=== PATIENT | female | born 1995 | race American Indian/Alaskan Native ===

== ENCOUNTER 2024-04-03 13:56 | Inpatient (IN) | payer OTHER, MEDICAID ==
[~2024-04-03] VITALS: Ht 162.6 cm; Wt 70.8 kg
[~2024-04-03 13:56] MED LIST: ETOMIDATE 20 MG/ 10 ML VIAL (AMIDATE) ONE; SUCCINYLCHOLINE CHLORIDE 20 MG/ML(QUELICIN) ONE
[2024-04-03 14:00] VITALS: BP_SYST 206; PULSE 61; RESP 24; TEMP 98.3; O2SAT 98
[2024-04-03] MEDS: DIPHENHYDRAMINE INJ 50 MG/ML VIAL IVP ONE (14:22)
[2024-04-03] MEDS: DEXAMETHASONE SOD PHOSPHATE 10 MG/ML VIAL IVP ONE (14:22)
[2024-04-03] MEDS: ONDANSETRON HCL 4 MG/2 ML VIAL IVP ONE (14:22)
[2024-04-03] MEDS: LORazepam 2 MG/ML VIAL IVP ONE ×2 (14:23→16:00)
[2024-04-03] MEDS: HALOPERIDOL LACTATE 5 MG/ML VIAL IVP ONE ×2 (14:37→16:15)
[2024-04-03 14:38] LABS: BILIRUBIN,URINE 1+ (NEGATIVE); BLOOD, URINE NEGATIVE (NEGATIVE); CLARITY/URINE CLEAR (CLEAR); COLOR,URINE YELLOW (YELLOW); GLUCOSE,URINE NEGATIVE (NEGATIVE); KETONES,URINE 2+ (NEGATIVE); LEUKOCYTE ESTERASE ,URINE NEGATIVE (NEGATIVE); NITRITE, URINE NEGATIVE (NEGATIVE); PROTEIN URINE 2+ (NEGATIVE); UROBILINOGEN,URINE 0.2 (0.2-1.0)
[2024-04-03 14:39] LABS: BASOPHILS # (AUTO) 0.1 K/uL (0.0-0.2); BASOPHILS % (AUTO) 0.5 % (0.0-2.0); EOSINOPHILS # (AUTO) 0.2 K/uL (0.0-0.4); EOSINOPHILS % (AUTO) 1.6 % (0.0-4.0); HEMATOCRIT 29.7 % (36-48); HEMOGLOBIN 9.6 g/dL (12.0-16.0); LYMPHOCYTES # (AUTO) 1.5 K/uL (1.0-5.5); LYMPHOCYTES % (AUTO) 12.4 % (20.5-51.5); MEAN CORPUSCULAR HEMOGLOBIN 24 pg (27-31); MEAN CORPUSCULAR HGB CONC 32 % (32-36); MEAN CORPUSCULAR VOLUME 73 fL (79.0-98.0); MONOCYTES # (AUTO) 0.9 K/uL (0.0-1.0); MONOCYTES % (AUTO) 7.7 % (1.7-9.3); NEUTROPHILS # (AUTO) 9.3 K/uL (1.8-7.7); NEUTROPHILS % (AUTO) 77.8 % (40.0-70.0); PLATELET COUNT (AUTO) 643 K/uL (130-430); RED BLOOD CELL COUNT(AUTO) 4.08 MIL/uL (4.2-6.2); WHITE BLOOD COUNT (AUTO) 11.9 K/uL (4.8-10.8)
[2024-04-03 14:54] LABS: BARBITURATE, URINE NEGATIVE (NEG <=200); BENZODIAZEPINE, URINE NEGATIVE (NEG <=150); CANNABINOID, URINE NEGATIVE (NEG <=50); COCAINE, URINE POSITIVE (NEG <=150); METHAMPHETAMINES SCREEN,URINE NEGATIVE (NEG <=500); PHENCYCLIDINE SCREEN,URINE NEGATIVE (NEG <=25); URINE AMPHETAMINE NEGATIVE (NEG <=500); URINE METHADONE NEGATIVE (NEG <=200)
[2024-04-03 14:55] LABS: OPIATE, URINE POSITIVE (NEG <=100); UR TRICYCLIC ANTIDEPRESSANTS NEGATIVE (NEG <=300); URINE OXYCODONE SCREEN NEGATIVE (NEG <=100)
[2024-04-03 14:56] LABS: SERUM HCG (QUALITATIVE) NEGATIVE (NEGATIVE)
[2024-04-03 14:58] LABS: INR 1.1 (0.8-1.2); PROTHROMBIN TIME 11.5 SECS (9.5-12.5)
[2024-04-03 15:02] LABS: ALANINE AMINOTRANSFERASE 15 U/L (12-78); ALBUMIN 3.3 g/dL (3.4-4.8); ANION GAP 16 (5-15); ASPARTATE AMINOTRANSFERASE 32 U/L (10-37); BILIRUBIN,DIRECT 0.2 mg/dL (0.0-0.3); CALCIUM 9.4 mg/dL (8.4-11.0); CARBON DIOXIDE 26 mmol/L (23-29); CHLORIDE 101 mmol/L (98-107); CREATININE 1.19 mg/dL (0.55-1.30); GFR AFRICAN AMERICAN 68 mL/min (>90); GLUCOSE 80 mg/dL (74-106); SODIUM SERUM 143 mmol/L (136-145); TOTAL BILIRUBIN 0.5 mg/dL (0.0-1.0); UREA NITROGEN, BLOOD 12 mg/dL (8-21)
[2024-04-03 15:05] LABS: ACETAMINOPHEN < 1 ug/mL (1-30); ALCOHOL, BLOOD < 3 mg/dL (<10); GFR NON AFRICAN-AMERICAN 57 mL/min (>90)
[2024-04-03 15:08] LABS: BACTERIA,URINE RARE /HPF (None Seen)
[2024-04-03] MEDS: NACL 0.9% 1,000 ML IV ONE ×2 (15:23)
[2024-04-03] MEDS: KCL 20 mEq in 100 mL (PREMIX) 100 ML IV ONE (15:30)
[2024-04-03] MEDS: IPRATROPIUM/ALBUTEROL SULFATE 3 ML AMPUL.NEB (DUONEB) INH ONE (15:48)
[2024-04-03] MEDS: ETOMIDATE 20 MG/ 10 ML VIAL (AMIDATE) IVP ONE (17:28)
[2024-04-03] MEDS: SUCCINYLCHOLINE CHLORIDE 20 MG/ML(QUELICIN) IVP ONE ×2 (17:30→19:16)
[2024-04-03] MEDS ORDERED: PROPOFOL DRIP 100 ML IV ONE (17:45)
[2024-04-03] MEDS ORDERED: PIPERACILLIN/TAZOBACTAM 3.375 GM/VIAL (ZOSYN) IV ONE (17:45)
[2024-04-03] MEDS: PIPERACILLIN/TAZO 3.375 GM in NS 50 ML IV ONE (18:03)
[2024-04-03] MEDS ORDERED: ALBUTEROL SULFATE 0.083% 2.5 MG/3 ML VIAL.NEB INH PRN (18:15)
[2024-04-03] MEDS ORDERED: IPRATROPIUM BROM 0.5 MG/2.5 ML VIAL.NEB (ATROVENT) INH PRN (18:15)
[2024-04-03] MEDS ORDERED: KCL 40mEq in D5/0.45NS 1000 mL 1,000 ML IV ONE (18:30)
[2024-04-03] MEDS: PROPOFOL DRIP 100 ML IV ONE (19:01)
[2024-04-03 20:20] LABS: BLOOD GAS HCO3 24.2 mmol/L (21.0-28.0); BLOOD GAS PCO2 35.4 mmHg (32.0-45.0); BLOOD GAS PH 7.453 (7.350-7.450); BLOOD GAS PO2 505.2 mmHg (83.0-108.0)
[2024-04-03 20:21] LABS: ABG O2 SAT% ESTIMATE 99.9 % (94.0-98.0); ALLEN'S TEST POSITIVE (P); BLOOD GAS BASE EXCESS 0.5 mmol/L (-2.0-3.0)
[2024-04-03] MEDS: KCL 20 mEq in D5/0.45NS 1000mL 1,000 ML IV ONE (20:52)
[2024-04-03 21:45] VITALS: BP_SYST 147; PULSE 89; RESP 12; TEMP 99; O2SAT 100
[2024-04-03 22:00] VITALS: BP_SYST 151; PULSE 92; RESP 19; TEMP 99; O2SAT 100
[2024-04-03] MEDS ORDERED: NALOXONE HCL 0.4 MG/ML AMP (NARCAN) IVP ONE (22:00)
[2024-04-03 22:34] VITALS: BP_SYST 144; PULSE 84; O2SAT 99
[2024-04-03 23:00] VITALS: BP_SYST 145; PULSE 82; RESP 18; O2SAT 100
[2024-04-03 23:21] VITALS: BP_SYST 145; PULSE 79
[2024-04-04] VITALS (34 sets, daily range): BP systolic 113–165; PULSE 47–98; RESP 8–31; TEMP 97.4–99.2; O2SAT 99–100
[2024-04-04] MEDS: ONDANSETRON HCL 4 MG/2 ML VIAL IVP PRN (00:34)
[2024-04-04] MEDS: VANCOMYCIN HCL 1 GM/NS PREMIX 250 ML IV ONE (00:35)
[2024-04-04] MEDS: VANCOMYCIN HCL 1000 MG/VIAL IV ONE (00:36)
[2024-04-04] MEDS ORDERED: ACETAMINOPHEN 650 MG SUPP.RECT RC PRN (01:15)
[2024-04-04] MEDS: PIPERACILLIN/TAZOBACTAM 3.375 GM/VIAL (ZOSYN) IV ONE (01:24)
[2024-04-04] MEDS: PIPERACILLIN/TAZO 3.375/DEX-IS 50 ML IV SCH (01:25)
[2024-04-04] MEDS: PROPOFOL DRIP 100 ML IV SCH (05:32)
[2024-04-04] MEDS: LORazepam 2 MG/ML VIAL IVP PRN (05:36)
[2024-04-04 05:57] LABS: BASOPHILS % (AUTO) 0.1 % (0.0-2.0); HEMATOCRIT 28.9 % (36-48); LYMPHOCYTES # (AUTO) 0.7 K/uL (1.0-5.5); LYMPHOCYTES % (AUTO) 5.7 % (20.5-51.5); MEAN CORPUSCULAR HEMOGLOBIN 23 pg (27-31); MEAN CORPUSCULAR HGB CONC 31 % (32-36); MEAN CORPUSCULAR VOLUME 73 fL (79.0-98.0); MONOCYTES # (AUTO) 0.4 K/uL (0.0-1.0); MONOCYTES % (AUTO) 3.4 % (1.7-9.3); NEUTROPHILS # (AUTO) 10.7 K/uL (1.8-7.7); NEUTROPHILS % (AUTO) 90.8 % (40.0-70.0); PLATELET COUNT (AUTO) 626 K/uL (130-430); RED BLOOD CELL COUNT(AUTO) 3.94 MIL/uL (4.2-6.2); RED CELL DISTRIBUTION WIDTH 18.6 % (9.0-15.0); WHITE BLOOD COUNT (AUTO) 11.8 K/uL (4.8-10.8)
[2024-04-04 06:14] LABS: ALBUMIN 2.7 g/dL (3.4-4.8); CALCIUM 9.1 mg/dL (8.4-11.0); CREATININE 0.62 mg/dL (0.55-1.30); POTASSIUM 3.1 mmol/L (3.5-5.1); TOTAL BILIRUBIN 0.4 mg/dL (0.0-1.0); TOTAL PROTEIN, SERUM 7.3 g/dL (6.4-8.3)
[2024-04-04] MEDS: ENOXAPARIN SODIUM 30 MG/0.3 ML SYRINGE SUBCUT SCH (08:15)
[2024-04-04] MEDS: KCL 20 mEq in 100 mL (PREMIX) 200 ML IV ONE (09:02)
[2024-04-04 10:06] LABS: ABG O2 SAT% ESTIMATE 96.5 % (94.0-98.0); ALLEN'S TEST POSITIVE (P); BLOOD GAS BASE EXCESS 4.1 mmol/L (-2.0-3.0); BLOOD GAS HCO3 27.5 mmol/L (21.0-28.0); BLOOD GAS PCO2 35.5 mmHg (32.0-45.0); BLOOD GAS PH 7.507 (7.350-7.450); BLOOD GAS PO2 76.9 mmHg (83.0-108.0)
[2024-04-04] MEDS: D5/0.45 NS 1,000 ML IV SCH (10:29)
[2024-04-04] MEDS: VANCOMYCIN HCL 1,000 MG in NS 250 ML IV SCH (14:01)
[2024-04-04] MEDS: NS 1000 ML IV.SOLN IV ONE (23:40)
[2024-04-05] VITALS (31 sets, daily range): BP systolic 96–154; PULSE 43–64; RESP 10–29; TEMP 98.6–99.4; O2SAT 99–100
[2024-04-05 06:27] LABS: BASOPHILS % (AUTO) 0.6 % (0.0-2.0); EOSINOPHILS % (AUTO) 0.7 % (0.0-4.0); HEMOGLOBIN 8.4 g/dL (12.0-16.0); LYMPHOCYTES # (AUTO) 1.4 K/uL (1.0-5.5); LYMPHOCYTES % (AUTO) 20.4 % (20.5-51.5); MEAN CORPUSCULAR HEMOGLOBIN 24 pg (27-31); MEAN CORPUSCULAR HGB CONC 32 % (32-36); MEAN CORPUSCULAR VOLUME 73 fL (79.0-98.0); MONOCYTES # (AUTO) 0.5 K/uL (0.0-1.0); MONOCYTES % (AUTO) 7.3 % (1.7-9.3); NEUTROPHILS # (AUTO) 4.7 K/uL (1.8-7.7); PLATELET COUNT (AUTO) 490 K/uL (130-430); RED BLOOD CELL COUNT(AUTO) 3.56 MIL/uL (4.2-6.2); RED CELL DISTRIBUTION WIDTH 19.2 % (9.0-15.0); WHITE BLOOD COUNT (AUTO) 6.7 K/uL (4.8-10.8)
[2024-04-05 07:09] LABS: ALBUMIN 2.3 g/dL (3.4-4.8); CALCIUM 8.5 mg/dL (8.4-11.0); CREATININE 0.78 mg/dL (0.55-1.30); TOTAL BILIRUBIN 0.4 mg/dL (0.0-1.0); TOTAL PROTEIN, SERUM 6.2 g/dL (6.4-8.3)
[2024-04-05] MEDS: KCL 40 mEq in 100 mL (PREMIX) 100 ML IV ONE (09:46)
[2024-04-05] MEDS: FUROSEMIDE 40 MG/4 ML VIAL IVP ONE (09:47)
[2024-04-05] MEDS: MORPHINE 4 MG INJ. 4 MG/ML VIAL IVP PRN (09:49)
[2024-04-05 13:21] LABS: ABG O2 SAT% ESTIMATE 98.9 % (94.0-98.0); ALLEN'S TEST POSITIVE (P); BLOOD GAS BASE EXCESS 2.2 mmol/L (-2.0-3.0); BLOOD GAS HCO3 21.9 mmol/L (21.0-28.0); BLOOD GAS PCO2 20.6 mmHg (32.0-45.0); BLOOD GAS PH 7.645 (7.350-7.450); BLOOD GAS PO2 113.1 mmHg (83.0-108.0)
[2024-04-05] MEDS: D5/0.45 NS 1,000 ML IV SCH (18:27)
[2024-04-05] MEDS ORDERED: DOPamine PREMIX 250 ML IV PRN (20:45)
[2024-04-06] VITALS (21 sets, daily range): BP systolic 101–150; PULSE 47–66; RESP 11–21; TEMP 97.2–98.5; O2SAT 95–100
[2024-04-06 06:20] LABS: BASOPHILS # (AUTO) 0.1 K/uL (0.0-0.2); BASOPHILS % (AUTO) 1.1 % (0.0-2.0); EOSINOPHILS # (AUTO) 0.1 K/uL (0.0-0.4); EOSINOPHILS % (AUTO) 1.7 % (0.0-4.0); HEMATOCRIT 28.6 % (36-48); LYMPHOCYTES # (AUTO) 0.9 K/uL (1.0-5.5); MEAN CORPUSCULAR HEMOGLOBIN 23 pg (27-31); MEAN CORPUSCULAR HGB CONC 31 % (32-36); MEAN CORPUSCULAR VOLUME 73 fL (79.0-98.0); MONOCYTES # (AUTO) 0.5 K/uL (0.0-1.0); MONOCYTES % (AUTO) 8.8 % (1.7-9.3); NEUTROPHILS % (AUTO) 72.4 % (40.0-70.0); PLATELET COUNT (AUTO) 499 K/uL (130-430); RED CELL DISTRIBUTION WIDTH 19.4 % (9.0-15.0); WHITE BLOOD COUNT (AUTO) 5.6 K/uL (4.8-10.8)
[2024-04-06 06:58] LABS: CALCIUM 8.5 mg/dL (8.4-11.0); CREATININE 1.08 mg/dL (0.55-1.30)
[2024-04-06] MEDS: MORPHINE 2 MG/ML INJ. SYRINGE IVP PRN (08:35)
[2024-04-06] MEDS: POTASSIUM CHLORIDE 20 MEQ TABLET.ER PO ONE (08:40)
[2024-04-06 09:14] LABS: FREE T4 (FREE THYROXINE) 0.8 ng/dl (0.8-1.5); THYROID STIMULATING HORMONE 2.69 uIu/mL (0.36-3.74)
[2024-04-06] MEDS: SENNOSIDES 8.6 MG TABLET PO ONE (09:44)
[2024-04-06] MEDS: PANTOPRAZOLE SODIUM 40 MG TAB PO ONE (09:44)
[2024-04-07] VITALS (9 sets, daily range): BP systolic 106–139; PULSE 54–63; RESP 11–18; TEMP 97.8–98.9; O2SAT 96–100
[2024-04-07 06:26] LABS: BASOPHILS % (AUTO) 0.8 % (0.0-2.0); EOSINOPHILS # (AUTO) 0.1 K/uL (0.0-0.4); EOSINOPHILS % (AUTO) 1.5 % (0.0-4.0); HEMATOCRIT 29.5 % (36-48); HEMOGLOBIN 9.2 g/dL (12.0-16.0); LYMPHOCYTES % (AUTO) 17.2 % (20.5-51.5); MEAN CORPUSCULAR HEMOGLOBIN 23 pg (27-31); MEAN CORPUSCULAR HGB CONC 31 % (32-36); MEAN CORPUSCULAR VOLUME 74 fL (79.0-98.0); MONOCYTES # (AUTO) 0.4 K/uL (0.0-1.0); MONOCYTES % (AUTO) 7.3 % (1.7-9.3); NEUTROPHILS # (AUTO) 4.2 K/uL (1.8-7.7); NEUTROPHILS % (AUTO) 73.2 % (40.0-70.0); PLATELET COUNT (AUTO) 510 K/uL (130-430); RED CELL DISTRIBUTION WIDTH 18.8 % (9.0-15.0); WHITE BLOOD COUNT (AUTO) 5.7 K/uL (4.8-10.8)
[2024-04-07 06:35] LABS: ALBUMIN 2.3 g/dL (3.4-4.8); CALCIUM 8.5 mg/dL (8.4-11.0); CREATININE 1.02 mg/dL (0.55-1.30); POTASSIUM 3.2 mmol/L (3.5-5.1); TOTAL BILIRUBIN 0.2 mg/dL (0.0-1.0); TOTAL PROTEIN, SERUM 6.2 g/dL (6.4-8.3)
[2024-04-07] MEDS: POTASSIUM CHLORIDE 20 MEQ TABLET.ER PO ONE (12:20)
[2024-04-07] MEDS: MORPHINE SULFATE 30 MG TABLET.SA PO ONE (12:40)
[2024-04-07] MEDS: POLYETHYLENE GLYCOL 3350, 17 GM/ POWD.PACK PO ONE (14:32)
[2024-04-07] MEDS: SODIUM PHOSPHATE,MONO-DIBASIC 133 ML ENEMA RC ONE (14:32)
[2024-04-07] MEDS ORDERED: MORPHINE SULFATE 30 MG TABLET.SA PO SCH (21:00)
== END 2024-04-07 20:45 | DRG 917 ==
LOC: SED 13:56 → SIC 18:12
PROVIDERS: ADMIT Student in an Organized Health Care Education/Training Program; ATTEND Student in an Organized Health Care Education/Training Program
PROC: 5A1945Z Respiratory Ventilation, 24-96 Consecutive Hours (ICD-10-PCS; principal; 2024-04-03)
PROC: 0BH17EZ Insertion of Endotracheal Airway into Trachea, Via Natural or Artificial Opening (ICD-10-PCS; 2024-04-03)
PROC: 02HV33Z Insertion of Infusion Device into Superior Vena Cava, Percutaneous Approach (ICD-10-PCS; 2024-04-04)
DX: T40.5X1A Poisoning by cocaine, accidental (unintentional), initial encounter (principal); G92.8 Other toxic encephalopathy; T40.2X1A Poisoning by other opioids, accidental (unintentional), initial encounter; E87.6 Hypokalemia; F31.9 Bipolar disorder, unspecified; D72.829 Elevated white blood cell count, unspecified; Z20.822 Contact with and (suspected) exposure to COVID-19; Z79.899 Other long term (current) drug therapy; Z88.8 Allergy status to other drugs, medicaments and biological substances; Y92.89 Other specified places as the place of occurrence of the external cause
CPT/HCPCS: 36415; 36600; 70450-TC; 71045; 80048; 80053; 80076; 80307; 81000; 81001; 81015; 82800-TC; 82803; 82948; 83605; 83735; 84439; 84443; 84484; 84703; 85025; 85610; 85730; 87040; 87070; 87081; 87086; 87186; 87205; 92610-GN; 93005; 94002; 94003; 94070; 94640; 94760; 97116-GP; 97530-GP; 99291; 99292; C1751; G0480; G0482; J0330; J1100; J1200; J1630; J1650; J1940; J1956; J2060; J2270; J2274; J2405; J2543; J2704; J3370; J3480; J3490; J7040; J7050; J7060; J7120